=== PATIENT | male | born 1965 | race Caucasian/White ===

== ENCOUNTER 2019-07-18 09:21 | Inpatient (IN) | payer MEDICAID ==
[~2019-07-18] VITALS: Ht 185.4 cm; Wt 86.2 kg
[2019-07-18 10:38] LABS: CALCIUM 9.2 mg/dL (8.5-10.1); CARBON DIOXIDE 28.4 mmol/L (21-32); CHLORIDE SERUM 103 mmol/L (98-107); GFR1 > 60 mL/min; GLUCOSE SERUM 100 mg/dL (74-106); POTASSIUM SERUM 4.4 mmol/L (3.5-5.1); SODIUM SERUM 140 mmol/L (136-145)
[2019-07-18 12:34] LABS: PLATELET COUNT 189 x10^3mcL (130-400); RED CELL DISTRIBUTION WIDTH 13.3 % (11.5-14.5)
[2019-07-18 13:03] LABS: BAND NEUTROPHIL 0 % (0-10); BASOPHIL 0 % (0-2); MONOCYTE 53 % (0-7); PLATELET MORPHOLOGY PLATELETS DECREASED; SEGMENTED NEUTROPHILS 37 % (37-75); rbc morphology (normal/abnorm) ABNORMAL (NORMAL)
[2019-07-18 15:19] LABS: T3 TOTAL 0.93 ng/mL
[2019-07-18 16:35] LABS: FREE T4 0.97 ng/dL (0.76-1.46); FREE THYROXINE INDEX 3.3 ug/dL (1.4-4.5); T4(THYROXINE) 8.8 ug/dL (4.7-13.3)
[2019-07-18 17:45] VITALS: BP 133/79
[2019-07-18 17:48] VITALS: Ht 185.4 cm; Wt 86.2 kg
[2019-07-18 18:29] LABS: microscopic required? NO
[2019-07-18 18:41] LABS: UA SPECIFIC GRAVITY 1.015 (1.005-1.035); urine erythrocyte NEGATIVE (NEGATIVE)
[2019-07-18 18:56] LABS: AMPHETAMINE QUAL UR NONE DETECTED (See below)
[2019-07-18 20:18] VITALS: BP 94/54
[2019-07-19 05:28] VITALS: BP 110/68
[2019-07-19 06:38] LABS: BASOPHIL % 0.3 % (0-2); PLATELET COUNT 182 x10^3mcL (130-400); RED CELL DISTRIBUTION WIDTH 13.1 % (11.5-14.5)
[2019-07-19 06:50] LABS: CARBON DIOXIDE 29.9 mmol/L (21-32); CHLORIDE SERUM 104 mmol/L (98-107); GFR1 > 60 mL/min; GLUCOSE SERUM 89 mg/dL (74-106); POTASSIUM SERUM 4.9 mmol/L (3.5-5.1); SODIUM SERUM 142 mmol/L (136-145)
[2019-07-19 07:01] LABS: MAGNESIUM 2.2 mg/dL (1.8-2.4); PHOSPHOROUS 3.6 mg/dL (2.5-4.9)
[2019-07-19 09:16] VITALS: BP 109/59
[2019-07-19 13:45] VITALS: BP 124/76
[2019-07-19 14:02] VITALS: BP 124/76
[2019-07-19] MEDS ORDERED: LIPI20 PO (14:13)
== END 2019-07-19 14:53 | disposition home or self-care (01) | DRG 756 ==
LOC: ED 09:21 → DU 14:22
PROVIDERS: Emergency Medicine; ADMIT Student in an Organized Health Care Education/Training Program
DX: F41.9 Anxiety disorder, unspecified (principal); E78.5 Hyperlipidemia, unspecified; Z85.6 Personal history of leukemia; Z68.25 Body mass index [BMI] 25.0-25.9, adult
CPT/HCPCS: 83880; 84439; 85378; G0378; Q0092

== ENCOUNTER 2019-09-05 16:32 | Emergency (ER) | payer OTHER ==
[~2019-09-05] VITALS: Ht 185.4 cm; Wt 90.7 kg
[~2019-09-05 16:32] MED LIST: LIPI20 PO
[2019-09-05 16:49] VITALS: Ht 185.4 cm; Wt 90.7 kg
[2019-09-05 18:32] LABS: CALCIUM 9.1 mg/dL (8.5-10.1); CARBON DIOXIDE 27.4 mmol/L (21-32); CHLORIDE SERUM 105 mmol/L (98-107); GFR1 > 60 mL/min; GLUCOSE SERUM 103 mg/dL (74-106); POTASSIUM SERUM 3.6 mmol/L (3.5-5.1); SODIUM SERUM 141 mmol/L (136-145)
[2019-09-05 18:37] LABS: ALKALINE PHOSPHATASE 60 U/L (46-116); ALT/SGPT 23 U/L (16-63); AST/SGOT 12 U/L (15-37); BILIRUBIN TOTAL 0.8 mg/dL (0.20-1.00); TOTAL PROTEIN, SERUM 7.2 g/dL (6.4-8.2)
[2019-09-05 18:41] LABS: BASOPHIL % 0.5 % (0-2); PLATELET COUNT 175 x10^3mcL (130-400); RED CELL DISTRIBUTION WIDTH 13.6 % (11.5-14.5)
[2019-09-05 20:05] VITALS: BP 113/74
== END 2019-09-05 20:05 | disposition home or self-care (01) ==
LOC: ED 16:32
PROVIDERS: Emergency Medicine
DX: R06.02 Shortness of breath (principal); F41.9 Anxiety disorder, unspecified; Z85.6 Personal history of leukemia
CPT/HCPCS: 36415; 85378; Q0092